=== PATIENT | female | born 2000 | race African-American/Black ===

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

== ENCOUNTER 2020-01-01 14:40 | Emergency (ER) | payer OTHER ==
[~2020-01-01] VITALS: Ht 167 cm; Wt 70.0 kg
[~2020-01-01 14:40] MED LIST: IBUP-1780 PO; METR500T PO; NITR-65 PO; ONDA4TAB11 PO
--- NOTE | 2020-01-01 14:45 | ED Abdominal Pain ---
General Stated Complaint: ABD PAIN Source of Information: Patient Exam Limitations: No Limitations History of Present Illness Date Seen by Provider: Jan 01, 2020 Time Seen by Provider: 14:44 Initial Comments 19-year-old female presents with lower abdominal cramping and discomfort. Along with some mild yellowish vaginal discharge. Patient was seen here approximately 21 days ago. At that time she was diagnosed with bacterial vaginitis and treated for chlamydia and gonorrhea. Her urine chlamydia test came back positive. Patient has not followed up since then. She presents today can she's having some more abdominal cramping but not pelvic cramping. She denies any fevers or chills. Patient reports she took a test this morning that was negative. A wet prep at that time was negative. Patient was prescribed Flagyl and treated in the ER with azithromycin and Rocephin. Patient was also given Macrobid for a UTI. Patient presents today because she is having similar symptoms. Allergies and Home Medications Allergies Coded Allergies: No Known Drug Allergies (Unverified , 12/13/19) Home Medications Ibuprofen 800 Mg Tablet, 800 MG PO Q8H PRN for PAIN Prescribed by: SHINE AMATO on 12/13/19 1633 Metronidazole 500 Mg Tablet, 500 MG PO BID Prescribed by: SHINE AMATO on 12/13/19 1633 Nitrofurantoin Monohyd/M-Cryst 100 Mg Capsule, 1 TAB PO BID Prescribed by: SHINE AMATO on 12/13/19 1633 Ondansetron 4 Mg Tab.rapdis, 4 MG PO Q8H Prescribed by: SHINE AMATO on 12/13/19 1633 Patient Home Medication List Home Medication List Reviewed: Yes Review of Systems Review of Systems Constitutional: No chills, No fever Respiratory: No Symptoms Reported Cardiovascular: No Symptoms Reported Gastrointestinal: Abdominal Pain Genitourinary: See HPI Musculoskeletal: see HPI Skin: no symptoms reported Psychiatric/Neurological: No Symptoms Reported Endocrine: No Symptoms Reported Hematologic/Lymphatic: No Symptoms Reported Past Cfyisuu-Fxwwht-[id number] Hx Past Med/Social Hx: Reviewed Nursing Past Med/Soc Hx Patient Social History Drug of Choice: Marijuana 2nd Hand Smoke Exposure: No Recent Foreign Travel: No Contact w/Someone Who Travel: No Recent Hopitalizations: No Seasonal Allergies Seasonal Allergies: No Past Medical History Surgeries: No Respiratory: No Cardiac: No Neurological: No Genitourinary: No Gastrointestinal: No Musculoskeletal: No Endocrine: No HEENT: No Cancer: No Psychosocial: No Integumentary: No Physical Exam Vital Signs Vital Signs - First Documented 01/01/20 14:56 Temp 36.6 Pulse 71 Resp 16 B/P (MAP) 117/67 (84) O2 Delivery Room Air Capillary Refill : Height/Weight/BMI Height: '" Weight: lbs. oz. kg; 24.00 BMI Method: General Appearance: WD/WN, no apparent distress Respiratory: lungs clear, normal breath sounds Cardiovascular: normal peripheral pulses, regular rate, rhythm Gastrointestinal: soft, tenderness, other (mild suprapubic ) Progress/Results/Core Measures Results/Orders Lab Results Laboratory Tests Test 01/01/20 14:42 01/01/20 15:10 Range/Units Urine Color YELLOW Urine Clarity CLEAR Urine pH 6.5 5-9 Urine Specific [place] 1.020 1.016-1.022 Urine Protein NEGATIVE NEGATIVE Urine Glucose (UA) NEGATIVE NEGATIVE Urine Ketones NEGATIVE NEGATIVE Urine Nitrite NEGATIVE NEGATIVE Urine Bilirubin NEGATIVE NEGATIVE Urine Urobilinogen 1.0 < = 1.0 MG/DL Urine Leukocyte Esterase 1+ H NEGATIVE Urine RBC (Auto) NEGATIVE NEGATIVE Urine RBC NONE /HPF Urine WBC 25-50 H /HPF Urine Squamous Epithelial Cells 10-25 H /HPF Urine Crystals NONE /LPF Urine Bacteria FEW H /HPF Urine Casts NONE /LPF Urine Mucus LARGE H /LPF Urine Culture Indicated YES Urine Test NEGATIVE NEGATIVE White Blood Count 7.0 4.3-11.0 10^3/uL Red Blood Count 4.06 L 4.35-5.85 10^6/uL Hemoglobin 11.2 L 11.5-16.0 G/DL Hematocrit 35 35-52 % Mean Corpuscular Volume 86 80-99 FL Mean Corpuscular Hemoglobin 28 25-34 PG Mean Corpuscular Hemoglobin Concent 32 32-36 G/DL Red Cell Distribution Width 12.7 10.0-14.5 % Platelet Count 408 H 130-400 10^3/uL Mean Platelet Volume 9.1 7.4-10.4 FL Immature Granulocyte % (Auto) 0 % Neutrophils (%) (Auto) 64 42-75 % Lymphocytes (%) (Auto) 20 12-44 % Monocytes (%) (Auto) 13 H 0-12 % Eosinophils (%) (Auto) 3 0-10 % Basophils (%) (Auto) 0 0-10 % Neutrophils # (Auto) 4.5 1.8-7.8 X 10^3 Lymphocytes # (Auto) 1.4 1.0-4.0 X 10^3 Monocytes # (Auto) 0.9 0.0-1.0 X 10^3 Eosinophils # (Auto) 0.2 0.0-0.3 10^3/uL Basophils # (Auto) 0.0 0.0-0.1 10^3/uL Immature Granulocyte # (Auto) 0.0 0.0-0.1 10^3/uL Sodium Level 138 135-145 MMOL/L Potassium Level 3.9 3.6-5.0 MMOL/L Chloride Level 103 98-107 MMOL/L Carbon Dioxide Level 25 21-32 MMOL/L Anion Gap 10 5-14 MMOL/L Blood Urea Nitrogen 8 7-18 MG/DL Creatinine 0.87 0.60-1.30 MG/DL Estimat Glomerular Filtration Rate > 60 BUN/Creatinine Ratio 9 Glucose Level 92 70-105 MG/DL Calcium Level 9.1 8.5-10.1 MG/DL Corrected Calcium 9.3 8.5-10.1 MG/DL Total Bilirubin 0.5 0.1-1.0 MG/DL Aspartate Amino Transf (AST/SGOT) 19 5-34 U/L Alanine Aminotransferase (ALT/SGPT) 11 0-55 U/L Alkaline Phosphatase 71 40-136 U/L C-Reactive Protein 3.91 H <0.50 MG/DL Total Protein 7.7 6.4-8.2 GM/DL Albumin 3.8 3.2-4.5 GM/DL My Orders Orders - BRUMFIELD,YUDY L DO Hcg,Qualitative Urine (01/01/20 14:54) Ua Culture If Indicated (01/01/20 14:54) Chlamydia Trachomatis Urine (01/01/20 14:54) Neis Moises Dna Urine Test (01/01/20 14:54) Cbc With Automated Diff (01/01/20 15:04) Comprehensive Metabolic Panel (01/01/20 15:04) Crp Fs (01/01/20 15:04) Urine Culture (01/01/20 14:42) Vital Signs/I&O 01/01/20 14:56 Temp 36.6 Pulse 71 Resp 16 B/P (MAP) 117/67 (84) O2 Delivery Room Air Progress Progress Note : Time: 16:19 Progress Note Patient with slight elevation of CRP otherwise her labs are unremarkable with urine that looks contaminated. Patient reports that she took her medications as prescribed. On reexamination patient's pain is more supraumbilical with some mild tenderness in the left lateral lower left portion. This time I don't feel that it is appendicitis since she has no right lower quadrant pain. She also does not have any pain in her lower pelvis. However due to her recent infection I will start her on doxycycline and due to the possibility of PID. Patient is otherwise stable and will be discharged home. Departure Impression Primary Impression: Abdominal pain Qualified Codes: R10.10 - Upper abdominal pain, unspecified Disposition: 01 HOME, SELF-CARE Condition: Stable Departure-Patient Inst. Referrals: NO,LOCAL PHYSICIAN (PCP/Family) Primary Care Physician Patient Instructions: Severe Abdominal Pain, Adult (DC) Add. Discharge Instructions: Please take in a manic as prescribed, follow-up with your primary care provider in 2-3 days for recheck of today symptoms If symptoms worsen or become a localized into the right lower portion of your abdomen please return to the ER for reevaluation Please ensure that your partner was tested for chlamydia prior to intercourse duty your recent treatment. Your urine was rechecked for chlamydia and gonorrhea to ensure that your infection cleared and we are awaiting results. Scripts Doxycycline Hyclate (Doxycycline Hyclate) 100 Mg Tablet 100 MG PO BID, #20 TAB 0 Refills Prov: YUDY BRUMFIELD DO 01/01/20 YUDY BRUMFIELD DO Jan 01, 2020 14:44
[2020-01-01 15:06] LABS: BACTERIA,URINE FEW /HPF; BILIRUBIN,URINE NEGATIVE (NEGATIVE); CLARITY,URINE CLEAR; COLOR,URINE YELLOW; GLUCOSE, URINE (UA) NEGATIVE (NEGATIVE); KETONES,URINE NEGATIVE (NEGATIVE); LEUKOCYTE ESTERASE ,URINE 1+ (NEGATIVE); NITRITE,URINE NEGATIVE (NEGATIVE); PH,URINE 6.5 (5-9); PROTEIN,URINE NEGATIVE (NEGATIVE); WBC,URINE 25-50 /HPF
[2020-01-01 15:14] LABS: HEMATOCRIT 35 % (35-52); HEMOGLOBIN 11.2 G/DL (11.5-16.0); LYMPHOCYTES % (AUTO) 20 % (12-44); MEAN CORPUSCULAR HEMOGLOBIN 28 PG (25-34); MEAN CORPUSCULAR HGB CONC 32 G/DL (32-36); MEAN CORPUSCULAR VOLUME 86 FL (80-99); MEAN PLATELET VOLUME 9.1 FL (7.4-10.4); NEUTROPHILS % (AUTO) 64 % (42-75); PLATELET COUNT 408 10^3/uL (130-400)
[2020-01-01 15:15] LABS: BASOPHILS % (AUTO) 0 % (0-10); EOSINOPHILS # (AUTO) 0.2 10^3/uL (0.0-0.3); EOSINOPHILS % (AUTO) 3 % (0-10); LYMPHOCYTES # (AUTO) 1.4 X 10^3 (1.0-4.0); MONOCYTES # (AUTO) 0.9 X 10^3 (0.0-1.0); MONOCYTES % (AUTO) 13 % (0-12); NEUTROPHILS # (AUTO) 4.5 X 10^3 (1.8-7.8)
[2020-01-01 15:53] LABS: BILIRUBIN,TOTAL 0.5 MG/DL (0.1-1.0); BUN/CREATININE RATIO 9; CALCIUM 9.1 MG/DL (8.5-10.1); CARBON DIOXIDE 25 MMOL/L (21-32); CHLORIDE 103 MMOL/L (98-107); CREATININE SERUM 0.87 MG/DL (0.60-1.30); GFR ESTIMATED > 60; GLUCOSE 92 MG/DL (70-105); POTASSIUM 3.9 MMOL/L (3.6-5.0); SODIUM 138 MMOL/L (135-145)
[2020-01-01 15:54] LABS: ALANINE AMINOTRANSFERASE 11 U/L (0-55); ALBUMIN 3.8 GM/DL (3.2-4.5); ALKALINE PHOSPHATASE 71 U/L (40-136); TOTAL PROTEIN 7.7 GM/DL (6.4-8.2)
[2020-01-01 16:20] VITALS: BP 120/72
[2020-01-01] MEDS ORDERED: DOXY100T2 PO (16:24)
== END 2020-01-01 16:25 | disposition home or self-care (01) ==
LOC: EDUNIT# 14:40 → ER FS 14:41
DX: R10.30 Lower abdominal pain, unspecified (principal); Z32.02 Encounter for pregnancy test, result negative
CPT/HCPCS: 36415; 80053; 81000; 84703; 85025; 86141; 87088; 87491; 87591